=== PATIENT | female | born 1990 | race Two or more races ===

== ENCOUNTER 2017-08-30 03:56 | Emergency (ER) | payer MEDICAID, OTHER ==
[~2017-08-30] VITALS: Ht 167.6 cm; Wt 80.0 kg
[2017-08-30] MEDS ORDERED: ALBU8HFA4 IH (04:00)
[2017-08-30] MEDS ORDERED: ALBUTEROL SULFATE 2.5 MG/0.5 ML NEB SOLUTION NEB ONE (04:15)
[2017-08-30] MEDS ORDERED: IPRATROPIUM BROMIDE 0.5 MG/2.5 ML NEB SOLUTION NEB ONE (04:15)
[2017-08-30] MEDS ORDERED: PredniSONE 20 MG TABLET PO ONE (05:45)
[2017-08-30 06:00] VITALS: BP 115/77
== END 2017-08-30 06:03 | disposition home or self-care (01) ==
LOC: EMS 03:57
DX: J45.901 Unspecified asthma with (acute) exacerbation (principal); I10 Essential (primary) hypertension
CPT/HCPCS: 94640; 99283; J7512; J7613